=== PATIENT | female | born 1990 | race Caucasian/White ===

== ENCOUNTER 2021-01-14 05:45 | Inpatient (IN) | payer OTHER ==
[2021-01-14 06:58] VITALS: BMI 32.8
[2021-01-14] MEDS ORDERED: BUPIVACAINE HCL/PF 0.25% (2.5MG/ML) 10 ML VIAL ONE (07:56)
[2021-01-14] MEDS ORDERED: OXYTOCIN 20 UNITS in 0.9% NS 40 UNIT/2,000 ML INFUS.BAG IV ONE (07:57)
[2021-01-14] MEDS ORDERED: ELECTROLYTE-148 SOLN 500 ML IV ONE (08:04)
[2021-01-14] MEDS ORDERED: CITRIC ACID/SODIUM CITRATE 30 ML UNIT-DOSE CUP PO ONE (08:04)
[2021-01-14] MEDS ORDERED: morphine SULFATE/PF 0.5 MG/ML (2cc Syringe - QUVA) ONE (08:25)
[2021-01-14] MEDS ORDERED: ELECTROLYTE-148 SOLN 1,000 ML IV SCH (08:34)
[2021-01-14] MEDS: OXYTOCIN 20 UNITS in 0.9% NS 20 UNIT/1,000 ML INFUS.BAG IV SCH ×2 (08:55→09:50)
[2021-01-14] MEDS ORDERED: ceFAZolin SODIUM 1 GM VIAL ONE (09:00)
[2021-01-14] MEDS ORDERED: GLYCOPYRROLATE 0.2 MG/1 ML VIAL ONE (09:00)
[2021-01-14] MEDS ORDERED: KETOROLAC TROMETHAMINE 30 MG/1 ML VIAL ONE (09:00)
[2021-01-14] MEDS ORDERED: DEXAMETHASONE SOD PHOSPHATE 4 MG/1 ML VIAL ONE (09:00)
[2021-01-14] MEDS ORDERED: ONDANSETRON 4 MG/2 ML VIAL ONE (09:00)
[2021-01-14] MEDS ORDERED: OXYTOCIN 20 UNITS in 0.9% NS 20 UNIT/1,000 ML INFUS.BAG IV ONE (09:22)
[2021-01-14] MEDS ORDERED: morphine SULFATE/PF 0.5 MG/ML (2cc Syringe - QUVA) EP ONE (09:47)
[2021-01-14] MEDS ORDERED: ONDANSETRON 4 MG/2 ML VIAL IVPUSH PRN (09:47)
[2021-01-14] MEDS ORDERED: IBUPROFEN 600 MG TABLET (FP) PO PRN (09:48)
[2021-01-14] MEDS ORDERED: oxyCODONE HCL 5 MG TABLET PO PRN ×2 (09:54)
[2021-01-14] MEDS ORDERED: METHYLERGONOVINE MALEATE 0.2 MG/1 ML AMP IM PRN (09:54)
[2021-01-14] MEDS ORDERED: IBUPROFEN 800 MG/8 ML IJ IVPB PRN (09:54)
[2021-01-14] MEDS: PRENATAL VITAMINS W/ FOLIC ACID TABLET (FP) PO SCH (11:35)
[2021-01-14] MEDS: SIMETHICONE 80 MG TAB.CHEW (FP) PO PRN (21:09)
[2021-01-14] MEDS: ACETAMINOPHEN 325 MG TABLET (FP) PO PRN (21:09)
[2021-01-14] MEDS: IBUPROFEN 600 MG TABLET (FP) PO PRN (21:09)
[2021-01-15] MEDS: IBUPROFEN 600 MG TABLET (FP) PO PRN ×3 (01:18→20:20)
[2021-01-15] MEDS: ACETAMINOPHEN 325 MG TABLET (FP) PO PRN (01:19)
[2021-01-15] MEDS: SIMETHICONE 80 MG TAB.CHEW (FP) PO PRN ×3 (01:19→20:20)
[2021-01-15] MEDS: PRENATAL VITAMINS W/ FOLIC ACID TABLET (FP) PO SCH (09:38)
[2021-01-15 09:52] LABS: BASO % 0.4 % (0-2.0); EOS % 0.3 % (0-4.5); HEMATOCRIT 24.5 % (32.4-45.2); LYMPH % 28.1 % (8-40); MCH 24.9 pg (25.7-33.7); MCHC 32.7 g/dl (32.0-36.0); MEAN CELL VOLUME 76.1 fl (80-96); MEAN PLT VOLUME 9.3 fl (7.5-11.1); MONO % 4.5 % (3.8-10.2); NEUT % 66.7 % (42.8-82.8); PLATELET COUNT 165 10^3/uL (134-434); RBC 3.21 M/mm3 (3.60-5.2); RDW 15.2 % (11.6-15.6); WHITE BLOOD COUNT 6.1 K/mm3 (4.0-10.0)
[2021-01-15] MEDS ORDERED: BISACODYL 10 MG SUPP.RECT RC PRN (09:54)
[2021-01-15] MEDS ORDERED: DIPHTH,PERTUSS(ACELL),TET 0.5 ML DISP.SYRIN IM ONE ×2 (11:00→11:45)
[2021-01-15] MEDS: SENNOSIDES/DOCUSATE COMBO (SENNA PLUS) TABLET (UD) PO PRN (20:21)
[2021-01-16] MEDS: SIMETHICONE 80 MG TAB.CHEW (FP) PO PRN ×3 (02:15→15:05)
[2021-01-16] MEDS: IBUPROFEN 600 MG TABLET (FP) PO PRN ×4 (02:15→20:52)
[2021-01-16] MEDS: SENNOSIDES/DOCUSATE COMBO (SENNA PLUS) TABLET (UD) PO PRN (08:45)
[2021-01-16] MEDS: ACETAMINOPHEN 325 MG TABLET (FP) PO PRN ×3 (09:36→20:53)
[2021-01-16] MEDS: PRENATAL VITAMINS W/ FOLIC ACID TABLET (FP) PO SCH (09:37)
[2021-01-16 22:11] VITALS: PULSE 87
[2021-01-17] MEDS: IBUPROFEN 600 MG TABLET (FP) PO PRN (06:34)
[2021-01-17] MEDS: ACETAMINOPHEN 325 MG TABLET (FP) PO PRN (06:35)
[2021-01-17] MEDS: SIMETHICONE 80 MG TAB.CHEW (FP) PO PRN (06:36)
[2021-01-17] MEDS: PRENATAL VITAMINS W/ FOLIC ACID TABLET (FP) PO SCH (09:15)
[2021-01-17 12:32] VITALS: BP 127/77; TEMP 98
== END 2021-01-17 11:55 | disposition home or self-care (01) | DRG 540 ==
LOC: JLDR 05:45 → J3W 11:15
PROVIDERS: ADMIT Obstetrics & Gynecology; ATTEND Obstetrics & Gynecology
PROC: 10D00Z1 Extraction of Products of Conception, Low, Open Approach (ICD-10-PCS; principal; 2021-01-14)
DX: O34.211 Maternal care for low transverse scar from previous cesarean delivery (principal); O24.420 Gestational diabetes mellitus in childbirth, diet controlled; O69.81X0 Labor and delivery complicated by cord around neck, without compression, not applicable or unspecified; Z3A.38 38 weeks gestation of pregnancy; Z37.0 Single live birth
CPT/HCPCS: 36415; 85025; 90715